=== PATIENT | female | born 1935 | race Caucasian/White ===

== ENCOUNTER 2017-06-05 06:47 | Observation (INO) | payer MEDICARE, OTHER ==
[2017-06-05] MEDS: NITROGLYCERIN 0.4 MG/HR PATCH TRANSDERM (08:00)
[2017-06-05 08:07] LABS: ADD MAN DIFF? NO
[2017-06-05 08:10] LABS: BASOPHILS % 0.5 % (0.0-2.0); EOSINOPHILS # 0.4 10^3/ul (0.0-0.5); EOSINOPHILS % 7.9 % (0.0-7.0); HEMATOCRIT 33.8 % (37.0-47.0); HEMOGLOBIN 11.1 g/dl (12.0-16.0); LYMPHOCYTES # 1.6 10^3/ul (0.8-2.9); LYMPHOCYTES % 36.8 % (15.0-51.0); MEAN CORPUSCULAR HEMOGLOBIN 31.2 pg (29.0-33.0); MEAN CORPUSCULAR HGB CONC 32.8 g/dl (32.0-37.0); MEAN CORPUSCULAR VOLUME 94.9 fl (82.0-101.0); MEAN PLATELET VOLUME 9.4 fl (7.4-10.4); MONOCYTE # 0.4 10^3/ul (0.3-0.9); MONOCYTES % 8.8 % (0.0-11.0); NEUTROPHILS % 45.8 % (39.0-77.0); PLATELET COUNT 215 10^3/UL (140-415); RED BLOOD COUNT 3.56 10^6/ul (4.20-5.40)
[2017-06-05 08:10] LABS: WHITE BLOOD COUNT 4.4 10^3/ul (4.8-10.8)
[2017-06-05 08:28] LABS: INR 0.89; PROTIME 12.1 Sec (11.9-14.9); PT RATIO 0.9
[2017-06-05 08:29] LABS: PARTIAL THROMBOPLASTIN TIME 27.9 Sec (25.0-35.0)
[2017-06-05 08:32] LABS: LACTIC ACID 0.7 mmol/L (0.5-2.0)
[2017-06-05 08:34] LABS: ALANINE AMINOTRANSFERASE 19 IU/L (13-69); ALBUMIN 4.3 g/dl (3.3-4.9); ALBUMIN/GLOBULIN RATIO 0.97; ALKALINE PHOSPHATASE 66 IU/L (42-121); ANION GAP 14 (8-16); ASPARTATE AMINO TRANSFERASE 24 IU/L (15-46); BILIRUBIN,INDIRECT 0.3 mg/dl (0-1.1); BILIRUBIN,TOTAL 0.3 mg/dl (0.2-1.3); BLOOD UREA NITROGEN 19 mg/dl (7-20); CALCIUM 10.3 mg/dl (8.4-10.2); CARBON DIOXIDE 31 mmol/L (21-31); CHLORIDE 105 mmol/L (97-110); CREATININE 1.19 mg/dl (0.44-1.00); GLUCOSE 94 mg/dl (70-220); POTASSIUM 3.9 mmol/L (3.5-5.1); SODIUM 146 mmol/L (135-144); TOTAL PROTEIN 8.7 g/dl (6.1-8.1)
[2017-06-05 08:45] LABS: B-TYPE NATRIURETIC PEPTIDE 224 PG/ML (0-450); TROPONIN-I 0.013 ng/ml (0.00-0.12)
[2017-06-05] MEDS: NITROGLYCERIN 0.2 MG/HR PATCH TRANSDERM (09:42)
[2017-06-05] MEDS: ALBUTEROL 0.083% (NEB) 2.5 MG/3 ML AMP HHN (09:51)
[2017-06-05] MEDS: FUROSEMIDE 20 MG INJ IV (16:20)
[2017-06-05] MEDS ORDERED: FUROSEMIDE 20 MG INJ IV (18:00)
[2017-06-05] MEDS ORDERED: ALBUTEROL 0.083% (NEB) 2.5 MG/3 ML AMP HHN (18:00)
[2017-06-05 19:34] LABS: CREATINE KINASE 42 IU/L (23-200)
[2017-06-05 19:47] LABS: CK INDEX 1.4
[2017-06-05 19:54] LABS: TROPONIN-I < 0.012 ng/ml (0.00-0.12)
[2017-06-05] MEDS: ACETAMINOPHEN 325 MG TAB PO (20:47)
[2017-06-05] MEDS: AZITHROMYCIN 250 MG TAB PO (20:47)
[2017-06-05] MEDS: ATORVASTATIN 10 MG TAB PO (20:47)
[2017-06-05] MEDS: SALMETEROL/FLUTICASONE 100/50 INHA INH (20:47)
[2017-06-05] MEDS: DOXAZOSIN 4 MG TAB PO (20:48)
[2017-06-05 23:54] LABS: CREATINE KINASE 35 IU/L (23-200)
[2017-06-06 00:06] LABS: CK INDEX 1.3; CK-MB 0.45 ng/ml (0.0-2.4)
[2017-06-06 00:09] LABS: TROPONIN-I < 0.012 ng/ml (0.00-0.12)
[2017-06-06 07:58] LABS: ADD MAN DIFF? NO
[2017-06-06 08:07] LABS: WHITE BLOOD COUNT 5.4 10^3/ul (4.8-10.8)
[2017-06-06 08:07] LABS: BASOPHILS % 0.4 % (0.0-2.0); EOSINOPHILS # 0.3 10^3/ul (0.0-0.5); EOSINOPHILS % 4.7 % (0.0-7.0); HEMATOCRIT 30.4 % (37.0-47.0); LYMPHOCYTES # 1.9 10^3/ul (0.8-2.9); LYMPHOCYTES % 34.8 % (15.0-51.0); MEAN CORPUSCULAR HGB CONC 32.9 g/dl (32.0-37.0); MEAN CORPUSCULAR VOLUME 94.1 fl (82.0-101.0); MEAN PLATELET VOLUME 9.7 fl (7.4-10.4); MONOCYTE # 0.6 10^3/ul (0.3-0.9); MONOCYTES % 10.8 % (0.0-11.0); NEUTROPHIL # 2.6 10^3/ul (1.6-7.5); NEUTROPHILS % 49.3 % (39.0-77.0); PLATELET COUNT 201 10^3/UL (140-415); RED BLOOD COUNT 3.23 10^6/ul (4.20-5.40)
[2017-06-06 08:28] LABS: IRON 53 ug/dl (35-150)
[2017-06-06 08:29] LABS: ANION GAP 11 (8-16); BLOOD UREA NITROGEN 26 mg/dl (7-20); CALCIUM 9.6 mg/dl (8.4-10.2); CARBON DIOXIDE 32 mmol/L (21-31); CHLORIDE 106 mmol/L (97-110); CREATININE 1.31 mg/dl (0.44-1.00); GLUCOSE 95 mg/dl (70-220); MAGNESIUM 1.6 mg/dl (1.7-2.5); POTASSIUM 3.6 mmol/L (3.5-5.1); SODIUM 145 mmol/L (135-144)
[2017-06-06 08:37] LABS: % IRON SATURATION 20 % SAT (22-52); TOTAL IRON BINDING CAPACITY 271 ug/dl (241-421)
[2017-06-06 08:49] LABS: HEMOGLOBIN A1C 5.8 % (0-5.9)
[2017-06-06] MEDS: AZITHROMYCIN 250 MG TAB PO ×2 (08:52→09:00)
[2017-06-06] MEDS: OXYBUTYNIN (XL) 5 MG TAB PO (08:52)
[2017-06-06] MEDS: FUROSEMIDE 20 MG TAB PO (08:53)
[2017-06-06] MEDS: FEBUXOSTAT 40 MG TABLET PO (08:53)
[2017-06-06] MEDS: VALSARTAN 160 MG TAB PO (08:54)
[2017-06-06] MEDS: CALCIUM/VITAMIN D (500/200) TAB PO (08:54)
[2017-06-06] MEDS: ASPIRIN 81 MG TAB PO (08:54)
[2017-06-06] MEDS: AMLODIPINE 10 MG TAB PO (08:54)
[2017-06-06] MEDS ORDERED: FUROSEMIDE 40 MG INJ IV (09:00)
[2017-06-06] MEDS: SALMETEROL/FLUTICASONE 100/50 INHA INH (09:42)
[2017-06-06] MEDS: DOXYCYCLINE 100 MG in SOD CHLORIDE 0.9% 250 ML IVPB (12:00)
[2017-06-06] MEDS: GUAIFENESIN/DM 5ML CUP PO (13:27)
[2017-06-06] MEDS: MAGNESIUM SULFATE 1 GM/D5W 100 ML IVPB (14:44)
== END 2017-06-06 17:08 | disposition home or self-care (01) ==
LOC: TEL 18:37 → E/R 06:47 → TEL 09:15
DX: I11.0 Hypertensive heart disease with heart failure (principal); I50.33 Acute on chronic diastolic (congestive) heart failure; D50.9 Iron deficiency anemia, unspecified; E11.9 Type 2 diabetes mellitus without complications; E78.5 Hyperlipidemia, unspecified; R05 Cough
CPT/HCPCS: 36415; 71045; 80048; 80053; 82550; 82553; 83036; 83540; 83605; 83735; 83880; 84100; 84443; 84484; 85025; 85610; 85730; 87040; 93005; 93306; 94664; 96374; 99217; 99285-25; G0378

== ENCOUNTER 2017-11-30 20:10 | Inpatient (IN) | payer MEDICARE, OTHER ==
[2017-11-30 20:46] LABS: ADD MAN DIFF? NO
[2017-11-30 20:47] LABS: WHITE BLOOD COUNT 5.4 10^3/ul (4.8-10.8)
[2017-11-30 20:47] LABS: BASOPHILS % 0.6 % (0.0-2.0); EOSINOPHILS # 0.4 10^3/ul (0.0-0.5); EOSINOPHILS % 7.3 % (0.0-7.0); HEMATOCRIT 30.2 % (37.0-47.0); HEMOGLOBIN 9.9 g/dl (12.0-16.0); LYMPHOCYTES # 2.5 10^3/ul (0.8-2.9); LYMPHOCYTES % 45.7 % (15.0-51.0); MEAN CORPUSCULAR HEMOGLOBIN 31.2 pg (29.0-33.0); MEAN CORPUSCULAR HGB CONC 32.8 g/dl (32.0-37.0); MEAN CORPUSCULAR VOLUME 95.3 fl (82.0-101.0); MEAN PLATELET VOLUME 9.3 fl (7.4-10.4); MONOCYTE # 0.6 10^3/ul (0.3-0.9); MONOCYTES % 10.4 % (0.0-11.0); NEUTROPHIL # 1.9 10^3/ul (1.6-7.5); PLATELET COUNT 177 10^3/UL (140-415); RED BLOOD COUNT 3.17 10^6/ul (4.20-5.40); RED CELL DISTRIBUTION WIDTH 13.3 % (11.5-14.5)
[2017-11-30 21:07] LABS: ANION GAP 9 (8-16); BLOOD UREA NITROGEN 41 mg/dl (7-20); CARBON DIOXIDE 30 mmol/L (21-31); CHLORIDE 105 mmol/L (97-110); CREATININE 1.72 mg/dl (0.44-1.00); GLUCOSE 81 mg/dl (70-220); POTASSIUM 3.8 mmol/L (3.5-5.1); SODIUM 140 mmol/L (135-144)
[2017-11-30 21:18] LABS: TROPONIN-I < 0.012 ng/ml (0.000-0.120)
[2017-11-30] MEDS: IPRATROPIUM (NEB) 0.5 MG/2.5 ML AMP NEB (22:19)
[2017-11-30] MEDS: ALBUTEROL 0.083% (NEB) 2.5 MG/3 ML AMP NEB (22:19)
[2017-11-30] MEDS: ENALAPRILAT 1.25 MG INJ IV (22:41)
[2017-11-30] MEDS ORDERED: ONDANSETRON 4 MG INJ IV (23:30)
[2017-11-30] MEDS: hydrALAzine 20 MG INJ IV (23:34)
[2017-12-01] MEDS: ACETAMINOPHEN 325 MG TAB PO (02:44)
[2017-12-01] MEDS ORDERED: GLUCOSE GEL 15 GRAM TUBE PO ×2 (03:00)
[2017-12-01] MEDS ORDERED: GLUCAGON 1 MG INJ IM (03:00)
[2017-12-01] MEDS ORDERED: GLUCOSE GEL 15 GRAM TUBE BUCCAL (03:00)
[2017-12-01] MEDS ORDERED: DEXTROSE 50% 50 ML SYRINGE IV ×2 (03:00)
[2017-12-01 03:18] LABS: CREATINE KINASE 58 IU/L (23-200)
[2017-12-01 03:31] LABS: CK INDEX 1.8; CK-MB 1.06 ng/ml (0.0-2.4); TROPONIN-I 0.015 ng/ml (0.000-0.120)
[2017-12-01 06:00] LABS: ADD MAN DIFF? NO
[2017-12-01 06:05] LABS: BASOPHILS % 0.4 % (0.0-2.0); EOSINOPHILS # 0.4 10^3/ul (0.0-0.5); EOSINOPHILS % 7.4 % (0.0-7.0); HEMATOCRIT 29.3 % (37.0-47.0); HEMOGLOBIN 9.5 g/dl (12.0-16.0); LYMPHOCYTES # 2.2 10^3/ul (0.8-2.9); LYMPHOCYTES % 37.7 % (15.0-51.0); MEAN CORPUSCULAR HGB CONC 32.4 g/dl (32.0-37.0); MEAN CORPUSCULAR VOLUME 95.8 fl (82.0-101.0); MEAN PLATELET VOLUME 9.4 fl (7.4-10.4); MONOCYTE # 0.6 10^3/ul (0.3-0.9); MONOCYTES % 9.8 % (0.0-11.0); NEUTROPHIL # 2.6 10^3/ul (1.6-7.5); NEUTROPHILS % 44.5 % (39.0-77.0); PLATELET COUNT 174 10^3/UL (140-415); RED BLOOD COUNT 3.06 10^6/ul (4.20-5.40); RED CELL DISTRIBUTION WIDTH 13.3 % (11.5-14.5)
[2017-12-01 06:05] LABS: WHITE BLOOD COUNT 5.7 10^3/ul (4.8-10.8)
[2017-12-01] MEDS: METHYLPREDNISOLONE 125 MG INJ IV (06:24)
[2017-12-01] MEDS: SOD CHLORIDE 0.9% 500 ML IV (06:25)
[2017-12-01 06:27] LABS: ANION GAP 6 (8-16); BLOOD UREA NITROGEN 37 mg/dl (7-20); CALCIUM 9.6 mg/dl (8.4-10.2); CARBON DIOXIDE 30 mmol/L (21-31); CHLORIDE 111 mmol/L (97-110); CREATININE 1.47 mg/dl (0.44-1.00); GLUCOSE 96 mg/dl (70-220); MAGNESIUM 2.1 mg/dl (1.7-2.5); PHOSPHORUS 3.7 mg/dl (2.5-4.9); POTASSIUM 3.5 mmol/L (3.5-5.1); SODIUM 143 mmol/L (135-144)
[2017-12-01] MEDS: INSULIN ASPART [NOVOLOG] 3 ML PEN SC ×4 (07:55→21:00)
[2017-12-01] MEDS: LEVOFLOXACIN 500MG/D5W (PMX) 100 ML IVPB (08:34)
[2017-12-01] MEDS: FEBUXOSTAT 40 MG TABLET PO (08:35)
[2017-12-01] MEDS: GABAPENTIN 300 MG CAP PO ×2 (08:36→21:18)
[2017-12-01 08:56] LABS: CREATINE KINASE 56 IU/L (23-200)
[2017-12-01 09:07] LABS: TROPONIN-I 0.017 ng/ml (0.000-0.120)
[2017-12-01] MEDS: hydrALAzine 20 MG INJ IV ×2 (12:29→17:25)
[2017-12-01] MEDS: ATORVASTATIN 10 MG TAB PO (21:18)
[2017-12-01] MEDS: MONTELUKAST 10 MG TAB PO (21:19)
[2017-12-01] MEDS: DOXAZOSIN 4 MG TAB PO (21:25)
[2017-12-01 23:03] LABS: SODIUM,URINE RANDOM 42 mmol/L (30-90)
[2017-12-01 23:07] LABS: CREATININE,URINE RANDOM 35.91 mg/dl (20-320); PROTEIN/CREAT RATIO 0.33 RATIO
[2017-12-02] MEDS: ACCU-CHEK XX (02:00)
[2017-12-02 06:41] LABS: ADD MAN DIFF? NO
[2017-12-02 06:46] LABS: WHITE BLOOD COUNT 6.3 10^3/ul (4.8-10.8)
[2017-12-02 06:46] LABS: BASOPHILS % 0.2 % (0.0-2.0); HEMATOCRIT 28.1 % (37.0-47.0); HEMOGLOBIN 9.4 g/dl (12.0-16.0); LYMPHOCYTES # 1.8 10^3/ul (0.8-2.9); LYMPHOCYTES % 28.4 % (15.0-51.0); MEAN CORPUSCULAR HEMOGLOBIN 31.4 pg (29.0-33.0); MEAN CORPUSCULAR HGB CONC 33.5 g/dl (32.0-37.0); MEAN PLATELET VOLUME 9.8 fl (7.4-10.4); MONOCYTE # 0.4 10^3/ul (0.3-0.9); MONOCYTES % 6.2 % (0.0-11.0); NEUTROPHIL # 4.1 10^3/ul (1.6-7.5); NEUTROPHILS % 64.7 % (39.0-77.0); PLATELET COUNT 185 10^3/UL (140-415); RED BLOOD COUNT 2.99 10^6/ul (4.20-5.40); RED CELL DISTRIBUTION WIDTH 13.2 % (11.5-14.5)
[2017-12-02 07:08] LABS: CREATINE KINASE 39 IU/L (23-200)
[2017-12-02 07:08] LABS: URIC ACID 4.3 mg/dl (3.1-7.9)
[2017-12-02 07:10] LABS: ANION GAP 9 (8-16); BLOOD UREA NITROGEN 37 mg/dl (7-20); CALCIUM 9.4 mg/dl (8.4-10.2); CARBON DIOXIDE 26 mmol/L (21-31); CHLORIDE 107 mmol/L (97-110); CREATININE 1.42 mg/dl (0.44-1.00); GLUCOSE 114 mg/dl (70-220); PHOSPHORUS 3.2 mg/dl (2.5-4.9); POTASSIUM 3.6 mmol/L (3.5-5.1); SODIUM 138 mmol/L (135-144)
[2017-12-02] MEDS: INSULIN ASPART [NOVOLOG] 3 ML PEN SC ×2 (07:49→11:50)
[2017-12-02] MEDS: GABAPENTIN 300 MG CAP PO (08:28)
[2017-12-02] MEDS: FEBUXOSTAT 40 MG TABLET PO (08:29)
[2017-12-03] MEDS ORDERED: LEVOFLOXACIN 250MG/D5W (PMX) 50 ML IVPB (09:00)
== END 2017-12-02 17:30 | disposition home health service (06) | DRG 304 ==
LOC: TEL 23:27 → E/R 20:10
DX: I16.0 Hypertensive urgency (principal); J18.9 Pneumonia, unspecified organism; I16.1 Hypertensive emergency; N17.9 Acute kidney failure, unspecified; E11.22 Type 2 diabetes mellitus with diabetic chronic kidney disease; I13.10 Hypertensive heart and chronic kidney disease without heart failure, with stage 1 through stage 4 chronic kidney disease, or unspecified chronic kidney disease; N18.9 Chronic kidney disease, unspecified; Z98.890 Other specified postprocedural states; E11.21 Type 2 diabetes mellitus with diabetic nephropathy; N20.0 Calculus of kidney; N28.1 Cyst of kidney, acquired
CPT/HCPCS: 36415; 71045; 76775; 80048; 81003; 82550; 82553; 82570; 82962; 83735; 84100; 84300; 84443; 84484; 84560; 85025; 89190; 93005; 93970; 94664; 96374; 99291-25; G0378

== ENCOUNTER 2017-12-06 14:45 | Observation (INO) | payer MEDICARE, OTHER ==
[2017-12-06 15:14] LABS: ADD MAN DIFF? NO
[2017-12-06] MEDS: SOD CHLORIDE 0.9% 500 ML IV (15:16)
[2017-12-06 15:17] LABS: BASOPHILS % 0.6 % (0.0-2.0); EOSINOPHILS # 0.3 10^3/ul (0.0-0.5); EOSINOPHILS % 5.8 % (0.0-7.0); HEMOGLOBIN 10.4 g/dl (12.0-16.0); LYMPHOCYTES # 1.9 10^3/ul (0.8-2.9); LYMPHOCYTES % 37.3 % (15.0-51.0); MEAN CORPUSCULAR HEMOGLOBIN 31.3 pg (29.0-33.0); MEAN CORPUSCULAR HGB CONC 32.5 g/dl (32.0-37.0); MEAN CORPUSCULAR VOLUME 96.4 fl (82.0-101.0); MEAN PLATELET VOLUME 8.9 fl (7.4-10.4); MONOCYTE # 0.7 10^3/ul (0.3-0.9); MONOCYTES % 13.3 % (0.0-11.0); NEUTROPHIL # 2.1 10^3/ul (1.6-7.5); NEUTROPHILS % 42.8 % (39.0-77.0); PLATELET COUNT 201 10^3/UL (140-415); RED BLOOD COUNT 3.32 10^6/ul (4.20-5.40); RED CELL DISTRIBUTION WIDTH 13.4 % (11.5-14.5)
[2017-12-06 15:36] LABS: LACTIC ACID 1.6 mmol/L (0.5-2.0)
[2017-12-06 15:36] LABS: ALANINE AMINOTRANSFERASE 13 IU/L (13-69); ALBUMIN 3.3 g/dl (3.3-4.9); ALBUMIN/GLOBULIN RATIO 0.89; ALKALINE PHOSPHATASE 48 IU/L (42-121); ANION GAP 11 (8-16); ASPARTATE AMINO TRANSFERASE 23 IU/L (15-46); BILIRUBIN,INDIRECT 0.3 mg/dl (0-1.1); BILIRUBIN,TOTAL 0.3 mg/dl (0.2-1.3); BLOOD UREA NITROGEN 32 mg/dl (7-20); CALCIUM 9.5 mg/dl (8.4-10.2); CARBON DIOXIDE 29 mmol/L (21-31); CHLORIDE 104 mmol/L (97-110); CREATININE 1.78 mg/dl (0.44-1.00); GLUCOSE 185 mg/dl (70-220); POTASSIUM 4.1 mmol/L (3.5-5.1); PROTIME 12.2 Sec (11.9-14.9); SODIUM 140 mmol/L (135-144)
[2017-12-06 15:47] LABS: TROPONIN-I < 0.012 ng/ml (0.000-0.120)
[2017-12-06 18:01] LABS: ADD UMIC NO; UR ASCORBIC ACID NEGATIVE (NEGATIVE); UR BILIRUBIN (Dip) NEGATIVE (NEGATIVE); UR BLOOD (Dip) NEGATIVE (NEGATIVE); UR CLARITY CLEAR (CLEAR); UR COLOR STRAW (YELLOW); UR GLUCOSE (Dip) NEGATIVE (NEGATIVE); UR KETONES (Dip) NEGATIVE (NEGATIVE); UR LEUKOCYTE ESTERASE (Dip) NEGATIVE Leu/ul (NEGATIVE); UR NITRITE (Dip) NEGATIVE (NEGATIVE); UR SPECIFIC GRAVITY (Dip) 1.006 (1.003-1.030); UR TOTAL PROTEIN (Dip) NEGATIVE (NEGATIVE); UR UROBILINOGEN (Dip) NEGATIVE (NEGATIVE)
[2017-12-06] MEDS ORDERED: ACETAMINOPHEN 325 MG TAB PO (19:00)
[2017-12-06] MEDS ORDERED: ONDANSETRON 4 MG INJ IV (19:00)
[2017-12-06] MEDS ORDERED: ZOLPIDEM 5 MG TAB PO (19:00)
[2017-12-06] MEDS ORDERED: DOCUSATE SODIUM 100 MG CAP PO (19:00)
[2017-12-06] MEDS ORDERED: morphine 2 MG INJ IV (19:00)
[2017-12-06] MEDS ORDERED: NACL 0.9% 3 ML SYG IV (19:00)
[2017-12-06] MEDS ORDERED: hydrALAzine 20 MG INJ (19:43)
[2017-12-06] MEDS: HYDROCODONE/APAP (5/325) TAB PO (19:48)
[2017-12-06] MEDS: hydrALAzine 20 MG INJ IV (19:53)
[2017-12-06] MEDS: ATORVASTATIN 10 MG TAB PO (21:41)
[2017-12-06] MEDS: MONTELUKAST 10 MG TAB PO (21:41)
[2017-12-06] MEDS: GABAPENTIN 300 MG CAP PO (21:41)
[2017-12-06] MEDS: DOXAZOSIN 4 MG TAB PO (21:41)
[2017-12-07 06:40] LABS: ADD MAN DIFF? NO
[2017-12-07 06:45] LABS: BASOPHILS % 0.7 % (0.0-2.0); EOSINOPHILS # 0.2 10^3/ul (0.0-0.5); EOSINOPHILS % 4.7 % (0.0-7.0); HEMATOCRIT 27.6 % (37.0-47.0); HEMOGLOBIN 9.1 g/dl (12.0-16.0); LYMPHOCYTES % 46.6 % (15.0-51.0); MEAN CORPUSCULAR HEMOGLOBIN 31.7 pg (29.0-33.0); MEAN CORPUSCULAR VOLUME 96.2 fl (82.0-101.0); MEAN PLATELET VOLUME 9.4 fl (7.4-10.4); MONOCYTE # 0.5 10^3/ul (0.3-0.9); MONOCYTES % 12.2 % (0.0-11.0); NEUTROPHIL # 1.5 10^3/ul (1.6-7.5); NEUTROPHILS % 35.6 % (39.0-77.0); PLATELET COUNT 183 10^3/UL (140-415); RED BLOOD COUNT 2.87 10^6/ul (4.20-5.40); RED CELL DISTRIBUTION WIDTH 13.4 % (11.5-14.5)
[2017-12-07 06:45] LABS: WHITE BLOOD COUNT 4.3 10^3/ul (4.8-10.8)
[2017-12-07 07:17] LABS: ANION GAP 5 (8-16); BLOOD UREA NITROGEN 27 mg/dl (7-20); CALCIUM 9.1 mg/dl (8.4-10.2); CARBON DIOXIDE 31 mmol/L (21-31); CHLORIDE 108 mmol/L (97-110); CREATININE 1.49 mg/dl (0.44-1.00); GLUCOSE 94 mg/dl (70-220); MAGNESIUM 2.1 mg/dl (1.7-2.5); PHOSPHORUS 3.3 mg/dl (2.5-4.9); POTASSIUM 4.2 mmol/L (3.5-5.1); SODIUM 140 mmol/L (135-144)
[2017-12-07] MEDS: GABAPENTIN 300 MG CAP PO ×2 (09:47→21:49)
[2017-12-07] MEDS: FEBUXOSTAT 40 MG TABLET PO (09:47)
[2017-12-07] MEDS: ATORVASTATIN 10 MG TAB PO (21:47)
[2017-12-07] MEDS: MONTELUKAST 10 MG TAB PO (21:47)
[2017-12-07] MEDS: DOXAZOSIN 4 MG TAB PO (21:48)
[2017-12-08] MEDS: FEBUXOSTAT 40 MG TABLET PO (08:40)
[2017-12-08] MEDS: GABAPENTIN 300 MG CAP PO ×2 (08:40→20:58)
[2017-12-08] MEDS: ATORVASTATIN 10 MG TAB PO (20:59)
[2017-12-08] MEDS: MONTELUKAST 10 MG TAB PO (21:00)
[2017-12-08] MEDS: DOXAZOSIN 4 MG TAB PO (21:01)
[2017-12-09] MEDS: GABAPENTIN 300 MG CAP PO (08:48)
[2017-12-09] MEDS: FEBUXOSTAT 40 MG TABLET PO (08:48)
== END 2017-12-09 10:08 | disposition home or self-care (01) ==
LOC: E/R 14:45 → TEL 20:54
DX: I95.2 Hypotension due to drugs (principal); T46.5X5A Adverse effect of other antihypertensive drugs, initial encounter; E11.9 Type 2 diabetes mellitus without complications; E11.22 Type 2 diabetes mellitus with diabetic chronic kidney disease; N18.9 Chronic kidney disease, unspecified; D64.9 Anemia, unspecified; I12.9 Hypertensive chronic kidney disease with stage 1 through stage 4 chronic kidney disease, or unspecified chronic kidney disease; Z79.82 Long term (current) use of aspirin; Z79.899 Other long term (current) drug therapy
CPT/HCPCS: 70450; 71045; 80048; 80053; 81003; 82962; 83605; 83735; 84100; 84484; 85025; 85610; 93005; 97161; 99285-25; G0378

== ENCOUNTER 2018-04-27 09:25 | Emergency (ER) | payer MEDICARE, OTHER ==
[2018-04-27] MEDS: DEXAMETHASONE 10 MG/ML 1 ML INJ IM (11:02)
[2018-04-27] MEDS: IPRATROPIUM (NEB) 0.5 MG/2.5 ML AMP HHN (11:09)
[2018-04-27] MEDS: ALBUTEROL 0.083% (NEB) 2.5 MG/3 ML AMP HHN (11:09)
[2018-04-27 13:00] LABS: ADD MAN DIFF? NO
[2018-04-27 13:05] LABS: WHITE BLOOD COUNT 5.2 10^3/ul (4.8-10.8)
[2018-04-27 13:05] LABS: BASOPHILS % 0.6 % (0.0-2.0); EOSINOPHILS # 0.2 10^3/ul (0.0-0.5); EOSINOPHILS % 2.9 % (0.0-7.0); HEMATOCRIT 35.1 % (37.0-47.0); HEMOGLOBIN 11.2 g/dl (12.0-16.0); LYMPHOCYTES # 1.3 10^3/ul (0.8-2.9); LYMPHOCYTES % 24.6 % (15.0-51.0); MEAN CORPUSCULAR HEMOGLOBIN 30.3 pg (29.0-33.0); MEAN CORPUSCULAR HGB CONC 31.9 g/dl (32.0-37.0); MEAN CORPUSCULAR VOLUME 94.9 fl (82.0-101.0); MONOCYTE # 0.3 10^3/ul (0.3-0.9); NEUTROPHIL # 3.5 10^3/ul (1.6-7.5); NEUTROPHILS % 66.7 % (39.0-77.0); PLATELET COUNT 270 10^3/UL (140-415); RED CELL DISTRIBUTION WIDTH 13.7 % (11.5-14.5)
[2018-04-27 13:21] LABS: ANION GAP 5 (5-13); BLOOD UREA NITROGEN 28 mg/dl (7-20); CALCIUM 10.2 mg/dl (8.4-10.2); CARBON DIOXIDE 33 mmol/L (21-31); CHLORIDE 104 mmol/L (97-110); CREATININE 1.39 mg/dl (0.44-1.00); GLUCOSE 107 mg/dl (70-220); POTASSIUM 4.1 mmol/L (3.5-5.1); SODIUM 142 mmol/L (135-144)
[2018-04-27 13:33] LABS: TROPONIN-I 0.027 ng/ml (0.000-0.120)
[2018-04-27 13:44] LABS: D-DIMER 7469.79 ng/ml (<460)
== END 2018-04-27 14:27 | disposition home or self-care (01) ==
LOC: FTE 09:25
DX: R05 Cough (principal); I11.0 Hypertensive heart disease with heart failure; I50.30 Unspecified diastolic (congestive) heart failure; J45.901 Unspecified asthma with (acute) exacerbation
CPT/HCPCS: 36415; 71045; 80048; 84484; 85025; 85378; 93005; 94664; 96372; 99285-25

== ENCOUNTER → 2018-07-08 | Outpatient (CLI) | payer MEDICARE, OTHER ==
[2018-07-08 12:22] LABS: Arterial Base Excess 4.5 mmol/L (-3.0-3); Arterial COHb 0.3 % (0.0-3.0); Arterial Fraction of Oxyhgb 89.7 % (93.0-99.0); Arterial HCO3 29.7 mmol/L (22.0-26.0); Arterial MetHb 0 % (0.0-1.5); MODE ROOM AIR; Site Right Brachial
== END | disposition home or self-care (01) ==
LOC: PUL 11:16
DX: R06.02 Shortness of breath (principal)
CPT/HCPCS: 36600; 82803

== ENCOUNTER 2018-10-19 10:51 | Inpatient (IN) | payer MEDICARE, OTHER ==
[2018-10-19 13:24] LABS: ADD MAN DIFF? NO
[2018-10-19 13:29] LABS: WHITE BLOOD COUNT 5.8 10^3/ul (4.8-10.8)
[2018-10-19 13:29] LABS: BASOPHILS % 0.7 % (0.0-2.0); EOSINOPHILS # 0.1 10^3/ul (0.0-0.5); EOSINOPHILS % 2.2 % (0.0-7.0); HEMATOCRIT 34.4 % (37.0-47.0); HEMOGLOBIN 11.2 g/dl (12.0-16.0); LYMPHOCYTES # 2.4 10^3/ul (0.8-2.9); LYMPHOCYTES % 41.8 % (15.0-51.0); MEAN CORPUSCULAR HEMOGLOBIN 31.5 pg (29.0-33.0); MEAN CORPUSCULAR HGB CONC 32.6 g/dl (32.0-37.0); MEAN CORPUSCULAR VOLUME 96.6 fl (82.0-101.0); MEAN PLATELET VOLUME 9.8 fl (7.4-10.4); MONOCYTE # 0.4 10^3/ul (0.3-0.9); MONOCYTES % 7.6 % (0.0-11.0); NEUTROPHIL # 2.8 10^3/ul (1.6-7.5); NEUTROPHILS % 47.5 % (39.0-77.0); PLATELET COUNT 190 10^3/UL (140-415); RED BLOOD COUNT 3.56 10^6/ul (4.20-5.40); RED CELL DISTRIBUTION WIDTH 13.6 % (11.5-14.5)
[2018-10-19 13:54] LABS: ALANINE AMINOTRANSFERASE 23 IU/L (13-69); ALKALINE PHOSPHATASE 57 IU/L (42-121); ANION GAP 9 (5-13); ASPARTATE AMINO TRANSFERASE 22 IU/L (15-46); BILIRUBIN,INDIRECT 0.3 mg/dl (0-1.1); BILIRUBIN,TOTAL 0.3 mg/dl (0.2-1.3); BLOOD UREA NITROGEN 45 mg/dl (7-20); CALCIUM 9.9 mg/dl (8.4-10.2); CARBON DIOXIDE 26 mmol/L (21-31); CHLORIDE 102 mmol/L (97-110); CREATININE 3.17 mg/dl (0.44-1.00); GLUCOSE 121 mg/dl (70-220); LIPASE 90 U/L (23-300); POTASSIUM 4.9 mmol/L (3.5-5.1); SODIUM 137 mmol/L (135-144)
[2018-10-19 13:59] LABS: INR 0.87; PROTIME 11.9 Sec (11.9-14.9); PT RATIO 0.9
[2018-10-19 14:03] LABS: B-TYPE NATRIURETIC PEPTIDE 434 PG/ML (0-450); TROPONIN-I < 0.012 ng/ml (0.000-0.120)
[2018-10-19] MEDS ORDERED: ONDANSETRON 4 MG INJ IV ×2 (14:30→15:00)
[2018-10-19] MEDS ORDERED: ACETAMINOPHEN 325 MG TAB PO (14:30)
[2018-10-19] MEDS: SOD CHLORIDE 0.9% 500 ML IV (14:34)
[2018-10-19] MEDS ORDERED: NACL 0.9% 3 ML SYG IV (15:00)
[2018-10-19] MEDS: SOD CHLORIDE 0.9% 1,000 ML IV (17:16)
[2018-10-19 21:23] LABS: CREATINE KINASE 46 IU/L (23-200)
[2018-10-19] MEDS: ATORVASTATIN 10 MG TAB PO (21:30)
[2018-10-19] MEDS: MONTELUKAST 10 MG TAB PO (21:30)
[2018-10-19] MEDS: GABAPENTIN 300 MG CAP PO (21:30)
[2018-10-19 21:36] LABS: CK INDEX 1.7; CK-MB 0.79 ng/ml (0.0-2.4); TROPONIN-I < 0.012 ng/ml (0.000-0.120)
[2018-10-20 02:06] LABS: ADD MAN DIFF? NO
[2018-10-20 02:13] LABS: EOSINOPHILS # 0.2 10^3/ul (0.0-0.5); EOSINOPHILS % 4.3 % (0.0-7.0); HEMATOCRIT 29.5 % (37.0-47.0); HEMOGLOBIN 9.3 g/dl (12.0-16.0); LYMPHOCYTES # 2.1 10^3/ul (0.8-2.9); LYMPHOCYTES % 51.2 % (15.0-51.0); MEAN CORPUSCULAR HEMOGLOBIN 30.7 pg (29.0-33.0); MEAN CORPUSCULAR HGB CONC 31.5 g/dl (32.0-37.0); MEAN CORPUSCULAR VOLUME 97.4 fl (82.0-101.0); MEAN PLATELET VOLUME 9.5 fl (7.4-10.4); MONOCYTE # 0.5 10^3/ul (0.3-0.9); MONOCYTES % 11.1 % (0.0-11.0); NEUTROPHIL # 1.3 10^3/ul (1.6-7.5); NEUTROPHILS % 32.2 % (39.0-77.0); PLATELET COUNT 173 10^3/UL (140-415); RED BLOOD COUNT 3.03 10^6/ul (4.20-5.40); RED CELL DISTRIBUTION WIDTH 13.8 % (11.5-14.5)
[2018-10-20 02:13] LABS: WHITE BLOOD COUNT 4.2 10^3/ul (4.8-10.8)
[2018-10-20 02:35] LABS: CREATINE KINASE 41 IU/L (23-200)
[2018-10-20 02:36] LABS: ALANINE AMINOTRANSFERASE 19 IU/L (13-69); ALBUMIN 2.9 g/dl (3.3-4.9); ALKALINE PHOSPHATASE 44 IU/L (42-121); ANION GAP 5 (5-13); ASPARTATE AMINO TRANSFERASE 18 IU/L (15-46); BILIRUBIN,INDIRECT 0.3 mg/dl (0-1.1); BILIRUBIN,TOTAL 0.3 mg/dl (0.2-1.3); BLOOD UREA NITROGEN 43 mg/dl (7-20); CALCIUM 9.4 mg/dl (8.4-10.2); CARBON DIOXIDE 27 mmol/L (21-31); CHLORIDE 105 mmol/L (97-110); CHOL/HDL RATIO 2.5 RATIO; CHOLESTEROL 110 mg/dl (100-200); CREATININE 2.95 mg/dl (0.44-1.00); GLUCOSE 78 mg/dl (70-220); HDL CHOLESTEROL 44 mg/dl (33-92); LDL CHOLESTEROL,CALCULATED 58 mg/dl; MAGNESIUM 2.2 mg/dl (1.7-2.5); POTASSIUM 4.5 mmol/L (3.5-5.1); SODIUM 137 mmol/L (135-144); TOTAL PROTEIN 6.1 g/dl (6.1-8.1); TRIGLYCERIDES 41 mg/dl (0-149)
[2018-10-20 02:44] LABS: CK INDEX 1.8; CK-MB 0.74 ng/ml (0.0-2.4); TROPONIN-I < 0.012 ng/ml (0.000-0.120)
[2018-10-20] MEDS ORDERED: LOSARTAN 50 MG TAB PO (09:00)
[2018-10-20] MEDS ORDERED: POTASSIUM CHLORIDE (SR) 10 MEQ TAB PO (09:00)
[2018-10-20] MEDS ORDERED: NIFEdipine (XL) 60 MG TAB PO (09:00)
[2018-10-20] MEDS: GABAPENTIN 300 MG CAP PO ×2 (09:10→20:14)
[2018-10-20] MEDS: FEBUXOSTAT 40 MG TABLET PO (09:10)
[2018-10-20] MEDS: SOD CHLORIDE 0.9% 1,000 ML IV ×2 (10:34→18:15)
[2018-10-20 15:13] LABS: ADD UMIC NO; UR ASCORBIC ACID NEGATIVE (NEGATIVE); UR BILIRUBIN (Dip) NEGATIVE (NEGATIVE); UR BLOOD (Dip) NEGATIVE (NEGATIVE); UR CLARITY CLEAR (CLEAR); UR COLOR STRAW (YELLOW); UR GLUCOSE (Dip) NEGATIVE (NEGATIVE); UR KETONES (Dip) NEGATIVE (NEGATIVE); UR LEUKOCYTE ESTERASE (Dip) NEGATIVE Leu/ul (NEGATIVE); UR NITRITE (Dip) NEGATIVE (NEGATIVE); UR SPECIFIC GRAVITY (Dip) 1.008 (1.003-1.030); UR TOTAL PROTEIN (Dip) NEGATIVE (NEGATIVE); UR UROBILINOGEN (Dip) NEGATIVE (NEGATIVE)
[2018-10-20] MEDS: MONTELUKAST 10 MG TAB PO (20:14)
[2018-10-20] MEDS: ATORVASTATIN 10 MG TAB PO (20:14)
[2018-10-21] MEDS: hydrALAzine 20 MG INJ IV ×2 (00:16→15:33)
[2018-10-21] MEDS: ACETAMINOPHEN 325 MG TAB PO ×2 (05:18→15:34)
[2018-10-21 05:52] LABS: ADD MAN DIFF? NO
[2018-10-21 06:02] LABS: WHITE BLOOD COUNT 4.5 10^3/ul (4.8-10.8)
[2018-10-21 06:02] LABS: BASOPHILS % 0.4 % (0.0-2.0); EOSINOPHILS # 0.2 10^3/ul (0.0-0.5); EOSINOPHILS % 4.6 % (0.0-7.0); HEMATOCRIT 30.5 % (37.0-47.0); HEMOGLOBIN 9.7 g/dl (12.0-16.0); LYMPHOCYTES % 43.7 % (15.0-51.0); MEAN CORPUSCULAR HEMOGLOBIN 31.2 pg (29.0-33.0); MEAN CORPUSCULAR HGB CONC 31.8 g/dl (32.0-37.0); MEAN CORPUSCULAR VOLUME 98.1 fl (82.0-101.0); MEAN PLATELET VOLUME 9.7 fl (7.4-10.4); MONOCYTE # 0.5 10^3/ul (0.3-0.9); MONOCYTES % 10.8 % (0.0-11.0); NEUTROPHIL # 1.8 10^3/ul (1.6-7.5); NEUTROPHILS % 40.3 % (39.0-77.0); PLATELET COUNT 170 10^3/UL (140-415); RED BLOOD COUNT 3.11 10^6/ul (4.20-5.40); RED CELL DISTRIBUTION WIDTH 13.7 % (11.5-14.5)
[2018-10-21 06:22] LABS: ANION GAP 4 (5-13); BLOOD UREA NITROGEN 36 mg/dl (7-20); CALCIUM 9.2 mg/dl (8.4-10.2); CARBON DIOXIDE 26 mmol/L (21-31); CHLORIDE 109 mmol/L (97-110); CREATININE 2.32 mg/dl (0.44-1.00); GLUCOSE 83 mg/dl (70-220); PHOSPHORUS 3.5 mg/dl (2.5-4.9); POTASSIUM 4.6 mmol/L (3.5-5.1); SODIUM 139 mmol/L (135-144)
[2018-10-21] MEDS: GABAPENTIN 300 MG CAP PO ×2 (09:47→20:17)
[2018-10-21] MEDS: FEBUXOSTAT 40 MG TABLET PO (09:47)
[2018-10-21] MEDS: NIFEdipine (XL) 60 MG TAB PO (17:25)
[2018-10-21] MEDS: MONTELUKAST 10 MG TAB PO (20:17)
[2018-10-21] MEDS: ATORVASTATIN 10 MG TAB PO (20:17)
[2018-10-22 06:54] LABS: ANION GAP 1 (5-13); BLOOD UREA NITROGEN 27 mg/dl (7-20); CALCIUM 9.8 mg/dl (8.4-10.2); CARBON DIOXIDE 28 mmol/L (21-31); CHLORIDE 109 mmol/L (97-110); CREATININE 1.82 mg/dl (0.44-1.00); GLUCOSE 90 mg/dl (70-220); POTASSIUM 4.2 mmol/L (3.5-5.1); SODIUM 138 mmol/L (135-144)
[2018-10-22] MEDS: GABAPENTIN 300 MG CAP PO ×2 (08:24→21:03)
[2018-10-22] MEDS: NIFEdipine (XL) 60 MG TAB PO (08:25)
[2018-10-22] MEDS: ENOXAPARIN 30 MG/0.3 ML SYG SC (08:27)
[2018-10-22] MEDS: FEBUXOSTAT 40 MG TABLET PO (08:45)
[2018-10-22] MEDS: TIOTROPIUM 18 MCG CAPSULE INHA DEV INH (19:00)
[2018-10-22] MEDS ORDERED: ALBUTEROL/IPRATROPIUM (NEB) 3 ML AMP HHN (19:00)
[2018-10-22] MEDS: FLUTICASONE/VILANTEROL 100-25 INH (19:00)
[2018-10-22] MEDS: ATORVASTATIN 10 MG TAB PO (21:03)
[2018-10-22] MEDS: MONTELUKAST 10 MG TAB PO (21:03)
[2018-10-23 06:07] LABS: ADD MAN DIFF? NO
[2018-10-23 06:14] LABS: WHITE BLOOD COUNT 5.7 10^3/ul (4.8-10.8)
[2018-10-23 06:14] LABS: BASOPHILS % 0.5 % (0.0-2.0); EOSINOPHILS # 0.2 10^3/ul (0.0-0.5); EOSINOPHILS % 4.1 % (0.0-7.0); HEMATOCRIT 30.3 % (37.0-47.0); HEMOGLOBIN 9.8 g/dl (12.0-16.0); LYMPHOCYTES # 2.5 10^3/ul (0.8-2.9); LYMPHOCYTES % 44.6 % (15.0-51.0); MEAN CORPUSCULAR HEMOGLOBIN 31.5 pg (29.0-33.0); MEAN CORPUSCULAR HGB CONC 32.3 g/dl (32.0-37.0); MEAN CORPUSCULAR VOLUME 97.4 fl (82.0-101.0); MEAN PLATELET VOLUME 9.6 fl (7.4-10.4); MONOCYTE # 0.5 10^3/ul (0.3-0.9); NEUTROPHIL # 2.4 10^3/ul (1.6-7.5); NEUTROPHILS % 41.6 % (39.0-77.0); PLATELET COUNT 174 10^3/UL (140-415); RED BLOOD COUNT 3.11 10^6/ul (4.20-5.40); RED CELL DISTRIBUTION WIDTH 13.4 % (11.5-14.5)
[2018-10-23 06:54] LABS: ANION GAP 1 (5-13); BLOOD UREA NITROGEN 22 mg/dl (7-20); CALCIUM 9.5 mg/dl (8.4-10.2); CARBON DIOXIDE 30 mmol/L (21-31); CHLORIDE 107 mmol/L (97-110); CREATININE 1.59 mg/dl (0.44-1.00); GLUCOSE 92 mg/dl (70-220); MAGNESIUM 1.9 mg/dl (1.7-2.5); PHOSPHORUS 2.9 mg/dl (2.5-4.9); POTASSIUM 4.5 mmol/L (3.5-5.1); SODIUM 138 mmol/L (135-144)
[2018-10-23] MEDS: NIFEdipine (XL) 60 MG TAB PO (09:02)
[2018-10-23] MEDS: FEBUXOSTAT 40 MG TABLET PO (09:02)
[2018-10-23] MEDS: TIOTROPIUM 18 MCG CAPSULE INHA DEV INH (09:03)
[2018-10-23] MEDS: GABAPENTIN 300 MG CAP PO ×2 (09:03→20:41)
[2018-10-23] MEDS: ENOXAPARIN 30 MG/0.3 ML SYG SC (09:06)
[2018-10-23] MEDS: FLUTICASONE/VILANTEROL 100-25 INH (09:11)
[2018-10-23] MEDS: ALBUTEROL/IPRATROPIUM (NEB) 3 ML AMP HHN ×2 (12:47→20:18)
[2018-10-23] MEDS: BUDESONIDE (NEB) 0.5MG/2ML AMP HHN ×2 (12:47→20:18)
[2018-10-23 14:06] LABS: B-TYPE NATRIURETIC PEPTIDE 294 PG/ML (0-450)
[2018-10-23] MEDS: ATORVASTATIN 10 MG TAB PO (20:41)
[2018-10-23] MEDS: MONTELUKAST 10 MG TAB PO (20:41)
[2018-10-24 06:09] LABS: ADD MAN DIFF? NO
[2018-10-24 06:12] LABS: BASOPHILS % 0.4 % (0.0-2.0); EOSINOPHILS # 0.2 10^3/ul (0.0-0.5); EOSINOPHILS % 3.5 % (0.0-7.0); HEMATOCRIT 31.1 % (37.0-47.0); HEMOGLOBIN 9.8 g/dl (12.0-16.0); LYMPHOCYTES # 2.2 10^3/ul (0.8-2.9); LYMPHOCYTES % 42.1 % (15.0-51.0); MEAN CORPUSCULAR HEMOGLOBIN 30.6 pg (29.0-33.0); MEAN CORPUSCULAR HGB CONC 31.5 g/dl (32.0-37.0); MEAN CORPUSCULAR VOLUME 97.2 fl (82.0-101.0); MEAN PLATELET VOLUME 9.9 fl (7.4-10.4); MONOCYTE # 0.6 10^3/ul (0.3-0.9); MONOCYTES % 11.9 % (0.0-11.0); NEUTROPHIL # 2.1 10^3/ul (1.6-7.5); NEUTROPHILS % 41.9 % (39.0-77.0); PLATELET COUNT 183 10^3/UL (140-415); RED CELL DISTRIBUTION WIDTH 13.7 % (11.5-14.5)
[2018-10-24 06:12] LABS: WHITE BLOOD COUNT 5.1 10^3/ul (4.8-10.8)
[2018-10-24 06:40] LABS: ANION GAP 2 (5-13); BLOOD UREA NITROGEN 20 mg/dl (7-20); CALCIUM 9.7 mg/dl (8.4-10.2); CARBON DIOXIDE 30 mmol/L (21-31); CHLORIDE 107 mmol/L (97-110); CREATININE 1.33 mg/dl (0.44-1.00); GLUCOSE 84 mg/dl (70-220); MAGNESIUM 1.8 mg/dl (1.7-2.5); PHOSPHORUS 3.1 mg/dl (2.5-4.9); POTASSIUM 4.7 mmol/L (3.5-5.1); SODIUM 139 mmol/L (135-144)
[2018-10-24] MEDS: GABAPENTIN 300 MG CAP PO ×2 (08:54→20:51)
[2018-10-24] MEDS: NIFEdipine (XL) 60 MG TAB PO (08:54)
[2018-10-24] MEDS: FEBUXOSTAT 40 MG TABLET PO (08:54)
[2018-10-24] MEDS: ENOXAPARIN 30 MG/0.3 ML SYG SC (08:56)
[2018-10-24] MEDS: BUDESONIDE (NEB) 0.5MG/2ML AMP HHN ×2 (09:18→19:21)
[2018-10-24] MEDS: ALBUTEROL/IPRATROPIUM (NEB) 3 ML AMP HHN ×3 (09:18→19:21)
[2018-10-24] MEDS: BACLOFEN 10 MG TAB PO (10:57)
[2018-10-24] MEDS: LIDOCAINE 5% PATCH TD (11:00)
[2018-10-24] MEDS: LEVOFLOXACIN 750MG/D5W (PMX) 150 ML IVPB (11:36)
[2018-10-24] MEDS: POLYETHYLENE GLYCOL 17 GM PACKET PO (14:42)
[2018-10-24] MEDS: ATORVASTATIN 10 MG TAB PO (20:51)
[2018-10-24] MEDS: MONTELUKAST 10 MG TAB PO (20:51)
[2018-10-25 05:59] LABS: ADD MAN DIFF? NO
[2018-10-25 06:08] LABS: WHITE BLOOD COUNT 4.4 10^3/ul (4.8-10.8)
[2018-10-25 06:08] LABS: BASOPHILS % 0.5 % (0.0-2.0); EOSINOPHILS # 0.2 10^3/ul (0.0-0.5); EOSINOPHILS % 5.5 % (0.0-7.0); HEMATOCRIT 29.7 % (37.0-47.0); HEMOGLOBIN 9.5 g/dl (12.0-16.0); LYMPHOCYTES % 44.6 % (15.0-51.0); MEAN CORPUSCULAR HEMOGLOBIN 31.3 pg (29.0-33.0); MEAN CORPUSCULAR VOLUME 97.7 fl (82.0-101.0); MEAN PLATELET VOLUME 9.2 fl (7.4-10.4); MONOCYTE # 0.6 10^3/ul (0.3-0.9); MONOCYTES % 13.3 % (0.0-11.0); NEUTROPHIL # 1.6 10^3/ul (1.6-7.5); NEUTROPHILS % 35.9 % (39.0-77.0); PLATELET COUNT 168 10^3/UL (140-415); RED BLOOD COUNT 3.04 10^6/ul (4.20-5.40); RED CELL DISTRIBUTION WIDTH 13.4 % (11.5-14.5)
[2018-10-25 06:38] LABS: ANION GAP 3 (5-13); BLOOD UREA NITROGEN 20 mg/dl (7-20); CALCIUM 9.8 mg/dl (8.4-10.2); CARBON DIOXIDE 31 mmol/L (21-31); CHLORIDE 105 mmol/L (97-110); GLUCOSE 94 mg/dl (70-220); MAGNESIUM 1.8 mg/dl (1.7-2.5); PHOSPHORUS 3.3 mg/dl (2.5-4.9); SODIUM 139 mmol/L (135-144)
[2018-10-25] MEDS: GABAPENTIN 300 MG CAP PO ×2 (08:34→21:06)
[2018-10-25] MEDS: FEBUXOSTAT 40 MG TABLET PO (08:34)
[2018-10-25] MEDS: NIFEdipine (XL) 60 MG TAB PO (08:34)
[2018-10-25] MEDS: ENOXAPARIN 30 MG/0.3 ML SYG SC (08:34)
[2018-10-25] MEDS: ALBUTEROL/IPRATROPIUM (NEB) 3 ML AMP HHN ×3 (08:42→19:59)
[2018-10-25] MEDS: BUDESONIDE (NEB) 0.5MG/2ML AMP HHN ×2 (08:43→19:59)
[2018-10-25] MEDS: POLYETHYLENE GLYCOL 17 GM PACKET PO (11:08)
[2018-10-25] MEDS: ATORVASTATIN 10 MG TAB PO (21:06)
[2018-10-25] MEDS: MONTELUKAST 10 MG TAB PO (21:06)
[2018-10-26 07:35] LABS: ALBUMIN 3.5 g/dl (3.3-4.9); ANION GAP 4 (5-13); BLOOD UREA NITROGEN 22 mg/dl (7-20); CALCIUM 9.4 mg/dl (8.4-10.2); CARBON DIOXIDE 30 mmol/L (21-31); CHLORIDE 105 mmol/L (97-110); CREATININE 1.51 mg/dl (0.44-1.00); GLUCOSE 89 mg/dl (70-220); MAGNESIUM 1.8 mg/dl (1.7-2.5); PHOSPHORUS 3.7 mg/dl (2.5-4.9); POTASSIUM 4.7 mmol/L (3.5-5.1); SODIUM 139 mmol/L (135-144)
[2018-10-26] MEDS: GABAPENTIN 300 MG CAP PO ×2 (09:08→20:36)
[2018-10-26] MEDS: FEBUXOSTAT 40 MG TABLET PO (09:08)
[2018-10-26] MEDS: NIFEdipine (XL) 60 MG TAB PO (09:08)
[2018-10-26] MEDS: ENOXAPARIN 30 MG/0.3 ML SYG SC (09:09)
[2018-10-26] MEDS: BUDESONIDE (NEB) 0.5MG/2ML AMP HHN ×2 (09:15→20:09)
[2018-10-26] MEDS: ALBUTEROL/IPRATROPIUM (NEB) 3 ML AMP HHN (09:15)
[2018-10-26] MEDS: LEVOFLOXACIN 750MG/D5W (PMX) 150 ML IVPB (10:38)
[2018-10-26] MEDS: GUAIFENESIN/DM 5ML CUP PO ×2 (12:05→21:31)
[2018-10-26] MEDS: DOCUSATE SODIUM 100 MG CAP PO ×2 (12:05→20:36)
[2018-10-26] MEDS ORDERED: BENZONATATE 100 MG CAP PO (12:30)
[2018-10-26] MEDS: POLYETHYLENE GLYCOL 17 GM PACKET PO (14:43)
[2018-10-26] MEDS: MONTELUKAST 10 MG TAB PO (20:36)
[2018-10-26] MEDS: ATORVASTATIN 10 MG TAB PO (20:36)
[2018-10-27 06:26] LABS: ALBUMIN 3.7 g/dl (3.3-4.9); ANION GAP 4 (5-13); CALCIUM 9.6 mg/dl (8.4-10.2); CARBON DIOXIDE 29 mmol/L (21-31); CHLORIDE 106 mmol/L (97-110); CREATININE 1.47 mg/dl (0.44-1.00); GLUCOSE 85 mg/dl (70-220); MAGNESIUM 1.8 mg/dl (1.7-2.5); PHOSPHORUS 3.9 mg/dl (2.5-4.9); POTASSIUM 4.6 mmol/L (3.5-5.1); SODIUM 139 mmol/L (135-144)
[2018-10-27 07:15] LABS: BLOOD UREA NITROGEN 20 mg/dl (7-20)
[2018-10-27] MEDS: ENOXAPARIN 30 MG/0.3 ML SYG SC (08:56)
[2018-10-27] MEDS: NIFEdipine (XL) 60 MG TAB PO (08:56)
[2018-10-27] MEDS: FEBUXOSTAT 40 MG TABLET PO (08:56)
[2018-10-27] MEDS: FLUTICASONE/VILANTEROL 100-25 INH (08:57)
[2018-10-27] MEDS: GABAPENTIN 300 MG CAP PO (08:57)
[2018-10-27] MEDS: DOCUSATE SODIUM 100 MG CAP PO (08:58)
[2018-10-27] MEDS: BUDESONIDE (NEB) 0.5MG/2ML AMP HHN (10:34)
== END 2018-10-27 17:49 | disposition home or self-care (01) | DRG 682 ==
LOC: 6WM 19:48 → E/R 10:51 → PP2 10-21 22:24 → 6WM 14:17
DX: N17.9 Acute kidney failure, unspecified (principal); J18.9 Pneumonia, unspecified organism; R00.1 Bradycardia, unspecified; I12.9 Hypertensive chronic kidney disease with stage 1 through stage 4 chronic kidney disease, or unspecified chronic kidney disease; E11.22 Type 2 diabetes mellitus with diabetic chronic kidney disease; N18.3 Chronic kidney disease, stage 3 (moderate); E87.5 Hyperkalemia; N20.0 Calculus of kidney; N28.1 Cyst of kidney, acquired; R32 Unspecified urinary incontinence; E11.21 Type 2 diabetes mellitus with diabetic nephropathy; R06.03 Acute respiratory distress; J43.9 Emphysema, unspecified; B35.1 Tinea unguium; L60.0 Ingrowing nail
CPT/HCPCS: 36415; 70450; 71045; 71100; 71250; 76775; 80048; 80053; 80061; 80069; 81003; 82550; 82553; 83036; 83690; 83735; 83880; 84100; 84443; 84484; 85025; 85610; 93005; 93306; 94640; 94664; 97161; 97167; 99285-25